=== PATIENT | female | born 1965 | race Caucasian/White ===

== ENCOUNTER 2021-07-11 17:26 | Emergency (ER) | payer BC, OTHER ==
[~2021-07-11] VITALS: Ht 177.8 cm; Wt 104.3 kg
--- NOTE | 2021-07-11 18:32 | NUR ---
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 RATES PAINS 9/10. WILL CONTINUE TO MONITOR THE PATIENT.
--- NOTE | 2021-07-11 18:39 | NUR ---
X-RAY TECH AT THE BEDSIDE
[2021-07-11] MEDS ORDERED: LORAZEPAM 1 MG TABLET ONE (19:00)
[2021-07-11] MEDS ORDERED: KETOROLAC TROMETHAMINE INJ 30 MG/ML VIAL IM ONE ×2 (19:00→20:00)
[2021-07-11] MEDS ORDERED: LORAZEPAM 1 MG TABLET PO ONE (19:00)
[2021-07-11] MEDS ORDERED: KETOROLAC TROMETHAMINE INJ 30 MG/ML VIAL ONE ×2 (19:00→19:37)
--- NOTE | 2021-07-11 19:11 | NUR ---
REPORT GIVEN TO NURSE BETANCOURT FOR STEFFI
[2021-07-11] MEDS ORDERED: LORA-259 PO (19:26)
[2021-07-11] MEDS ORDERED: IBUP-1957 PO (19:26)
--- NOTE | 2021-07-11 19:41 | NUR ---
Patient discharged to home in stable condition. Written and verbal after care instructions given. Patient verbalizes understanding of instruction.
[2021-07-11 19:42] VITALS: BP 160/77
== END 2021-07-11 19:48 | disposition home or self-care (01) ==
LOC: ER 17:36
DX: S82.61XA Displaced fracture of lateral malleolus of right fibula, initial encounter for closed fracture (principal); M25.531 Pain in right wrist; M25.552 Pain in left hip; G43.909 Migraine, unspecified, not intractable, without status migrainosus; Z98.890 Other specified postprocedural states; Z79.899 Other long term (current) drug therapy; W01.0XXA Fall on same level from slipping, tripping and stumbling without subsequent striking against object, initial encounter; Y93.89 Activity, other specified; Y92.89 Other specified places as the place of occurrence of the external cause; Y99.8 Other external cause status
CPT/HCPCS: 73110; 73521; 73610; 96372; 99291; J1885 ×2